=== PATIENT | male | born 1960 | race Caucasian/White ===

== ENCOUNTER 2016-06-27 13:22 | Emergency (ER) | payer OTHER ==
[~2016-06-27] VITALS: Ht 177.8 cm; Wt 95.3 kg
[~2016-06-27 13:22] MED LIST: ALBUPOW26; MORP60TA34; SEROQ; VENL25TA2
[2016-06-27 13:54] VITALS: BP 136/85
== END 2016-06-27 16:05 | disposition left against medical advice (07) ==
LOC: ER 13:41
DX: H92.03 Otalgia, bilateral (principal); R51 Headache; Z53.21 Procedure and treatment not carried out due to patient leaving prior to being seen by health care provider